=== PATIENT | female | born 1985 | race Asian ===

== ENCOUNTER 2024-08-19 12:08 | Emergency (ER) | payer OTHER ==
[~2024-08-19] VITALS: Ht 167.6 cm; Wt 95.2 kg
[2024-08-19 12:13] VITALS: TEMP 97.8
--- NOTE | 2024-08-19 14:22 | Physician Documentation ---
History of Present Illness ~ Chief Complaint: Constipation Stated Complaint: SEE CHEIF COMPLAINT Time Seen by MD: 14:05 HPI This is a 39-year-old female with a history of type 2 diabetes who presents with four days of constipation, patient reports that when she tries to have a bowel movement the hard stool hurts her rectum. Patient reports that she has required enema and digital disimpaction in the past. Patient reports she started taking MiraLax and docusate this morning. Patient reports that her fluid intake has been less than normal. Patient reports no other acute symptoms or concerns. Patient reports only mild discomfort in abdomen. Medication Reconciliation Allergies: Coded Allergies: No Known Allergies (Unverified , 08/20/24) Past Medical History Past Medical History: Diabetes Smoking Status: Former smoker Review of Systems ROS As stated above in the HPI, otherwise all systems are reviewed and negative. Physical Exam Vital Signs: Temperature: 97.8, Source: Temporal, Heart Rate: 98, Respiratory Rate: 16, BP: 111/71, Pulse Oximetry: 99, Weight: 95.150 Oxygen Flow Rate: 0 Physical Exam VITALS: Reviewed and as above. GENERAL: Alert, nontoxic appearing, no apparent distress. RESPIRATORY: No increased work of breathing, no respiratory distress, speaking in full clear sentences, clear lung sounds all m[place] CV: Regular rate and rhythm no murmur BACK: No CVA tenderness GI: Left lower abdomen mildly tender otherwise abdomen nontender, no rebound, no guarding, soft, nondistended, bowel sounds present Progress Results/Orders Results/Orders Completed Orders - STEFANY SINHA COGNOS TM1 DEVELOPER * Soap Suds Enema* (08/19/24 14:17) Mineral Oil Enema (Mineral Oil Enema) (08/19/24 15:50) Vital Signs 08/19/24 08/19/24 08/19/24 08/19/24 12:13 13:00 13:17 15:00 Temp 97.8 Pulse 98 86 86 Resp 16 16 16 B/P (MAP) 111/71 105/61 (76) 121/76 (91) Pulse Ox 99 98 97 O2 Flow Rate 0 0 0 08/19/24 17:56 Pulse 87 Resp 18 B/P (MAP) 113/63 (80) Pulse Ox 100 O2 Flow Rate 0 Medical Decision Making Findings This 39-year-old female presented with constipation, patient reports she has attempted to have bowel movement however due to hard stool she is experiencing rectal pain with bowel movement, after careful discussion with patient it was decided to attempt a enema to loosen hard stool. Patient's physical exam was benign with minimal to no tenderness to palpation of the abdomen, patient reported only mild discomfort due to constipation, primary pain coming with trying to have a bowel movement and hard stool. Two soapsuds enemas and one oil enema provided by nursing staff with patient having multiple small bowel movements of hard stool, patient reported feeling improvement in symptoms and reports she would like to be discharged. As patient reported no other acute symptoms or concerns and reports feeling well, along with benign physical exam and stable vital signs patient is appropriate for discharge. Patient reports she has MiraLax at home therefore no other prescription sent. Patient provided home care instructions, follow up instructions, and return to care precautions which he verbalized understanding of. Diff Dx Pain:Considerations: Include: Appendicitis, Bowel obstruction, Constipation, Diverticular disease, Gastritis/PUD, Gastroenteritis, Inflammatory BD, Ischemic bowel, Mass Diff Dx Rectal:Considerations: Include: Foreign body, Impaction Departure Disposition: HOME / SELF CARE / HOMELESS Impression: Primary Impression: Constipation Qualified Codes: K59.00 - Constipation, unspecified Condition: Improved Discharge Instructions: Constipation, Adult Additional Instructions: Please continue to take stool softener, I recommend increasing your fiber and fluid intake, you may consider adding a fiber supplement to your diet. Continue to use the MiraLax as needed. Please follow up with your primary care provider in the next few days. Please return to the emergency department for any new or worsening concerning symptoms. Referrals: NO PRIMARY CARE PROVIDER (PCP) Education Educated: Patient Educated regarding: diagnosis, treatment, prognosis, need for follow up Signature Scribe Signature: No scribe Attestation: The note accurately reflects work and decisions made by me.JONNY Taylor 08/20/24 03:36 STEFANY SINHA Aug 19, 2024 14:22
[2024-08-19] MEDS: mineral oil 133ml enema RC ONE (15:55)
[2024-08-19 17:56] VITALS: BP 113/63; PULSE 87; RESP 18; O2SAT 100
== END 2024-08-19 18:41 | disposition home or self-care (01) ==
LOC: ER 12:09
DX: K59.00 Constipation, unspecified (principal); E11.9 Type 2 diabetes mellitus without complications
CPT/HCPCS: 99284

== ENCOUNTER 2024-08-20 02:58 | Emergency (ER) | payer OTHER ==
[~2024-08-20] VITALS: Ht 167.6 cm; Wt 93.7 kg
[2024-08-20 03:19] VITALS: BP 168/75; PULSE 93; RESP 15; O2SAT 100
--- NOTE | 2024-08-20 04:29 | Physician Documentation ---
History of Present Illness ~ Chief Complaint: Constipation Stated Complaint: ABDOMINAL PAIN Time Seen by MD: 04:28 Primary Medical Doctor: SHIMON WOLFE HPI The patient presents with constipation She tells me that for the past couple of days she has been constipated, and having a hard time having a bowel movement. She can feel a hard stool ball in her rectum, and states it is painful but too large to pass. She was here earlier in the ER and given multiple enemas, with some partial relief. She went home, and continued to have trouble having a bowel movement. She reports ongoing rectal discomfort and reports having a hard stool ball that she can not pass. She also tells me that she thinks she may be dehydrated because I was not given any IV fluids in the ER. . She is not having any vomiting, and is drinking fluids. She did drink coconut water and MiraLax. She denies any other new or different symptoms. Medication Reconciliation Allergies: Coded Allergies: No Known Allergies (Unverified , 08/20/24) Review of Systems Constitutional: Denies: fever Gastrointestinal: Reports: constipated, rectal pain; Denies: vomiting Physical Exam Vital Signs: Temperature: 96.8, Heart Rate: 93, Respiratory Rate: 15, BP: 168/75, Pulse Oximetry: 100, Weight: 93.650 General Appearance General: This is a pleasant but uncomfortable appearing young woman HEENT: Atraumatic, oropharynx appears moist Heart: Mild tachycardic, appears regular Lungs: normal work of breathing, normal oxygen saturation on room air Abdomen: Soft, lower abdominal distention, no rebound or guarding Neuro: Alert and oriented Psychiatric: Appears anxious but is cooperative Progress Results/Orders Results/Orders Completed Orders - JESSIKA CONROY MD Lidocaine 2% Jelly 11ml Syr (Glydo-Lidoc (08/20/24 04:45) Medications Received in ER Medications (Trade) Dose Ordered Sig/Rula Route PRN Reason Start Time Stop Time Status Last Admin Dose Admin (GLYDO-Lidocaine 2% Topical Jelly 11mL syringe) 1 applic ONCE ONCE TOP 08/20/24 04:45 08/20/24 04:46 DC 08/20/24 04:56 1 APPLIC Vital Signs 08/20/24 08/20/24 03:19 04:54 Temp 96.8 96.8 Pulse 93 Resp 15 B/P (MAP) 168/75 Pulse Ox 100 Medical Decision Making Additional info obtained from: old records Findings I reviewed previous ER records. The patient was seen here earlier today, for constipation. She was given several enemas, and did have some small bowel movements. She was discharged with home care instructions. Diff Dx N/V/D:Considerations: Include: Bowel obstruction Diff Dx Rectal:Considerations: Include: Impaction, Thrombosed hemorrhoid Assessment The patient presents with a history and exam that are all consistent with fecal impaction. She has no findings to suggest bowel obstruction or other more dangerous process. She does not appear dangerously dehydrated. I do not feel that any further workup or testing is indicated at this time. She was given lidocaine jelly, and other supplies for self disimpaction. She was able to successfully self disimpact here in the emergency department. She will be discharged home with ongoing symptomatic treatment for constipation. Departure Time of Disposition: 04:43 Disposition: 01 HOME / SELF CARE / HOMELESS Impression: Primary Impression: Fecal impaction Condition: Stable Discharge Instructions: Fecal Impaction Referrals: NO PRIMARY CARE PROVIDER (PCP) Education Educated: Patient Signature Scribe Signature: chidi Attestation: JESSIKA Stanley MD Aug 20, 2024 04:29
[2024-08-20 04:54] VITALS: TEMP 96.8
[2024-08-20] MEDS: LidoCAINE 2% Topical Jelly 11mL syringe (UROJET) TOP ONE (04:56)
== END 2024-08-20 05:14 | disposition home or self-care (01) ==
LOC: ER 02:59
DX: K56.41 Fecal impaction (principal)
CPT/HCPCS: 99282